=== PATIENT | female | born 1980 | race Caucasian/White ===

== ENCOUNTER 2018-08-22 15:51 | Emergency (ER) | payer MEDICAID ==
[~2018-08-22] VITALS: Ht 157.5 cm; Wt 60.9 kg
[~2018-08-22 15:51] MED LIST: IBUP-1542 PO
[2018-08-22 16:04] VITALS: Ht 157.5 cm; Wt 60.9 kg
[2018-08-22] MEDS ORDERED: NITR-58 PO (20:17)
--- NOTE | 2018-08-22 20:19 | ERD ---
ER Documentation Chief Complaint Chief Complaint vaginal bleeding x2 days ROS All systems reviewed and are negative except as per history of present illness. Medications Home Meds Active Scripts Nitrofurantoin Monohyd Macrocr* (Macrobid*) 100 Mg Capsr, 100 MG PO BID for bacteruria for 5 Days, #10 CAP Prov:NEHA MELCHOR DO 08/22/18 Ibuprofen* (Ibuprofen*) 600 Mg Tablet, 600 MG PO Q6, #20 TAB 0 Refills Prov:ALEX ALEMAN MD 02/09/16 Allergies Allergies: Coded Allergies: No Known Drug Allergy (Verified Allergy, Unknown, 03/10/08) PMhx/Soc History of Surgery: Yes (ORAL) Anesthesia Reaction: No Hx Neurological Disorder: No Hx Respiratory Disorders: No Hx Cardiac Disorders: No Hx Psychiatric Problems: No Hx Miscellaneous Medical Probl: No (PT DENIES PAST M/S HX) Hx Alcohol Use: No Hx Substance Use: No Hx Tobacco Use: No Physical Exam Vitals Vital Signs Date Temp Pulse Resp B/P (MAP) Pulse Ox O2 O2 Flow FiO2 Time Delivery Rate 08/22/18 98.6 84 18 128/60 98 16:04 (82) Physical Exam Const: No acute distress Head: Atraumatic Eyes: Normal Conjunctiva ENT: Normal External Ears, Nose and Mouth. Neck: Full range of motion. No meningismus. Resp: Clear to auscultation bilaterally Cardio: Regular rate and rhythm, no murmurs Abd: Soft, non tender, non distended. Normal bowel sounds Skin: No petechiae or rashes Back: No midline or flank tenderness Ext: No cyanosis, or edema Neur: Awake and alert Psych: Normal Mood and Affect Result Diagram: 08/22/18 1833 Results 24 hrs Laboratory Tests Test 08/22/18 18:30 08/22/18 18:33 Urine Color YELLOW Urine Clarity CLOUDY Urine pH 7.0 Urine Specific [place] 1.014 Urine Ketones 1+ mg/dL Urine Nitrite NEGATIVE mg/dL Urine Bilirubin NEGATIVE mg/dL Urine Urobilinogen 1+ mg/dL Urine Leukocyte Esterase TRACE [place]/ul Urine Microscopic RBC 2 /HPF Urine Microscopic WBC 7 /HPF Urine Squamous Epithelial Cells FEW /HPF Urine Amorphous Crystals MODERATE /HPF Urine Bacteria FEW /HPF Urine Mucus FEW /HPF Urine Hemoglobin 2+ mg/dL Urine Glucose NEGATIVE mg/dL Urine Total Protein NEGATIVE mg/dl White Blood Count 12.2 10^3/ul Red Blood Count 4.60 10^6/ul Hemoglobin 13.8 g/dl Hematocrit 40.0 % Mean Corpuscular Volume 87.0 fl Mean Corpuscular Hemoglobin 30.0 pg Mean Corpuscular Hemoglobin Concent 34.5 g/dl Red Cell Distribution Width 12.9 % Platelet Count 244 10^3/UL Mean Platelet Volume 10.8 fl Immature Granulocytes % 0.300 % Neutrophils % 64.3 % Lymphocytes % 25.1 % Monocytes % 5.5 % Eosinophils % 4.1 % Basophils % 0.7 % Nucleated Red Blood Cells % 0.0 /100WBC Immature Granulocytes # 0.040 10^3/ul Neutrophils # 7.9 10^3/ul Lymphocytes # 3.1 10^3/ul Monocytes # 0.7 10^3/ul Eosinophils # 0.5 10^3/ul Basophils # 0.1 10^3/ul Nucleated Red Blood Cells # 0.0 10^3/ul Beta HCG, Quantitative 3678.3 mIU/ml Departure Diagnosis: Primary Impression: Vaginal bleeding in patient at less than 20 weeks ges... Additional Impression: Asymptomatic bacteriuria during Condition: Fair Patient Instructions: Bleeding During Early Referrals: COMM[facility] YOU HAVE RECEIVED A MEDICAL SCREENING EXAM AND THE RESULTS INDICATE THAT YOU DO NOT HAVE A CONDITION THAT REQUIRES URGENT TREATMENT IN THE EMERGENCY DEPARTMENT. FURTHER EVALUATION AND TREATMENT OF YOUR CONDITION CAN WAIT UNTIL YOU ARE SEEN IN YOUR DOCTORS OFFICE WITHIN THE NEXT 1-2 DAYS. IT IS YOUR RESPONSIBILITY TO MAKE AN APPOINTMENT FOR FOLOW-UP CARE. IF YOU HAVE A PRIMARY DOCTOR --you should call your primary doctor and schedule an appointment IF YOU DO NOT HAVE A PRIMARY DOCTOR YOU CAN CALL OUR PHYSICIAN REFERRAL HOTLINE AT IF YOU CAN NOT AFFORD TO SEE A PHYSICIAN YOU CAN CHOSE FROM THE FOLLOWING [facility] [address] [facility] [address] [facility] [address] [facility] [address] [facility] [address] [facility] [address] Additional Instructions: Llame al doctor MAANA y madalyn lo SHIMON PARA DENTRO DE 1-2 BARRON.Dgale a la secretaria que nosotros le instruimos hacer esta shimon.Avise o llame si mancera condicin se empeora antes de la shimon. Regresa aqui si peor o no mejor. Keep appointment with [facility] tomorrow. Repeat beta HCG level in 48 hours, repeat OB US in two weeks. NEHA MELCHOR DO August 22, 2018 20:19
[2018-08-22 20:27] VITALS: BP 106/56; PULSE 81; RESP 18
== END 2018-08-22 20:27 | disposition home or self-care (01) ==
LOC: FTE 15:51
DX: O20.9 Hemorrhage in early pregnancy, unspecified (principal); O23.91 Unspecified genitourinary tract infection in pregnancy, first trimester; Z3A.01 Less than 8 weeks gestation of pregnancy
CPT/HCPCS: 76801; 81001; 84702; 85025; 86900; 86901; Z7502